=== PATIENT | male | born 1990 | race African-American/Black ===

== ENCOUNTER 2024-11-16 13:48 | Emergency (ER) | payer OTHER ==
[~2024-11-16] VITALS: Ht 177.8 cm; Wt 83.9 kg
[2024-11-16] MEDS ORDERED: ACETAMINOPHEN 325 MG TABLET ONE (15:00)
[2024-11-16] MEDS: ACETAMINOPHEN 325 MG TABLET PO ONE (15:08)
[2024-11-16] MEDS ORDERED: ACET-2030 PO (16:27)
[2024-11-16] MEDS ORDERED: IBUP-1490 PO (16:27)
[2024-11-16 16:34] VITALS: BP 112/61; O2SAT 99
== END 2024-11-16 16:35 | disposition home or self-care (01) ==
LOC: ER 14:20
DX: J06.9 Acute upper respiratory infection, unspecified (principal); B97.89 Other viral agents as the cause of diseases classified elsewhere; K59.00 Constipation, unspecified; V43.52XA Car driver injured in collision with other type car in traffic accident, initial encounter; Y93.89 Activity, other specified; Y92.415 Exit ramp or entrance ramp of street or highway as the place of occurrence of the external cause; Y99.8 Other external cause status
CPT/HCPCS: 72040-TC